=== PATIENT | female | born 1980 | race Two or more races ===

== ENCOUNTER 2025-02-01 08:20 | Day surgery (SDC) | payer BC, SELFPAY ==
--- NOTE | 2025-01-29 12:58 | ESHP_ITS ---
RE: ISIDRO CARVAJAL : 1980 DATE OF ADMISSION: 02/01/2025 HISTORY OF PRESENT ILLNESS: This is a 44-year-old 1, para 1 with IUD that could not be removed in the office due to non-visualization of the IUD string, although an ultrasound confirms that the IUD is in the uterine cavity and in the fundal position. Gentle probing of the endocervical canal has failed to allow the IUD to be removed. She is presenting for hysteroscopy with IUD removal. ALLERGIES: NO KNOWN DRUG ALLERGIES. MEDICATIONS: None. PAST MEDICAL HISTORY: Leiomyomatous uterus and severe pelvic adhesions. SOCIAL HISTORY: She denies any alcohol, drug use, or smoking. OBSTETRIC HISTORY: In 2004, normal vaginal delivery. No complications. PAST SURGICAL HISTORY: Diagnostic laparoscopy, severe pelvic adhesions. REVIEW OF SYSTEMS: She denies any chest pain, palpitations, cough, fever, or shortness of breath or lower extremity pain. PHYSICAL EXAMINATION: VITAL SIGNS: Blood pressure 133/80, heart rate 70, respirations 18, temperature 98.2, weight 157 pounds. HEENT: Oropharynx and sclerae are clear. LUNGS: Clear to auscultation bilaterally. HEART: Regular rate and rhythm. ABDOMEN: Nontender. PELVIC: Deferred. EXTREMITIES: Nontender. SKIN: No gross rashes or lesions. NEUROLOGIC: No focal deficits. ASSESSMENT: IUD with missing strings. PLAN: Hysteroscopy, IUD removal. Informed consent was obtained. The patient was made aware of the risks, complications, alternatives, and benefits of the proposed procedure and she agrees. She is aware of the risk of injury to bowel or bladder, uterus, adjacent organs, pulmonary embolism, deep vein thrombosis, pelvic infection, reoperation, repair injury to internal organs, anesthesia complications, the possibility that a laparotomy needs to be performed to repair organs or complete the procedure or control bleeding and the possibility that the procedure is not able to be completed due to severe adhesions or technical difficulties. DT: 09:55:11 TT: 12:20:00 Ref: [id number] - TID: [id number] [email or web address]
[2025-01-31 10:32] VITALS: BMI 28.3
[2025-01-31 11:24] LABS: Basophils % (Auto) 0 % (0-2.5); Eosinophils # (Auto) 0.4 Thou/mm3 (0.0-0.5); Eosinophils % (Auto) 7 % (0-10); Hematocrit 42.4 % (36.0-46.0); Hemoglobin 14.6 g/dL (12.0-16.0); Immature Granulocytes % (Auto) 0 % (0-0); Immature Granulocytes Auto 0.01 Thou/mm3 (0.00-0.00); Lymphocytes # (Auto) 1.4 Thou/mm3 (1.0-4.8); Lymphocytes % (Auto) 25 % (10-50); Mean Corpuscular HGB Conc 34.4 g/dl (31.0-37.0); Mean Corpuscular Hemoglobin 31.2 pg (25.0-35.0); Mean Corpuscular Volume 91 fL (80-100); Monocytes # (Auto) 0.5 Thou/mm3 (0.0-0.8); Monocytes % (Auto) 9 % (0-12); Neutrophils # (Auto) 3.2 Thou/mm3 (1.8-7.7); Neutrophils % (Auto) 58 % (37-80); Nucleated Red Blood Cell % 0 /100 WBC (0); Platelet Count 260 Thou/mm3 (140-440); RDW Standard Deviation 46.4 fL (36.4-46.3); Red Blood Count 4.68 Miln/mm3 (4.00-5.20); White Blood Count 5.4 Thou/mm3 (3.6-11.0)
[2025-01-31 11:54] LABS: Partial Thromboplastin Time 27.4 Seconds (22.0-36.0); Prothrombin Time 10.9 Seconds (9.0-12.2)
[2025-01-31 11:58] LABS: Alanine Aminotransferase 17 U/L (10-49); Albumin, Serum 4.4 gm/dL (3.5-5.0); Albumin/Globulin Ratio 1.7 (1.2-2.2); Alkaline Phosphatase 34 U/L (46-116); Anion Gap 8 (7-16); Aspartate Amino Transferase 27 U/L (0-34); BUN/Creatinine Ratio 10 Ratio (12-20); Beta HCG,Quantitative < 1 mIU/mL (<5.0); Bilirubin,Total 0.6 mg/dL (0.3-1.2); Blood Urea Nitrogen 8 mg/dL (9-23); Calcium 10.2 mg/dL (8.3-10.6); Calcium (Corrected) 10.2 mg/dL (8.5-10.1); Carbon Dioxide 29.3 mMol/L (20.0-31.0); Chloride 104 mMol/L (98-107); Creatinine (Component) 0.8 mg/dL (0.6-1.3); Estimated Creatinine Clearance 84.7 mL/min (>60); Globulin 2.6 gm/dL (2.3-3.5); Glucose 96 mg/dL (74-106); Osmolality,Calculated 279 (275-295); Potassium 4.3 mMol/L (3.4-5.1); Sodium 141 mMol/L (136-145); eGFR > 60 See Note
[2025-02-01 08:53] VITALS: BP 124/87; PULSE 68; RESP 12; TEMP 36.1; O2SAT 98; BMI 28.9
[2025-02-01] MEDS: RINGERS LACTATED 1000 ML 1,000 ML 30 ML IV (08:59)
[2025-02-01 11:24] VITALS: BP 103/66; PULSE 58; PULSE 59; RESP 12; TEMP 36.3; O2SAT 96
[2025-02-01 11:30] VITALS: BP 114/75; PULSE 58; RESP 12; TEMP 36.2; O2SAT 96
[2025-02-01 11:35] VITALS: BP 121/76; PULSE 55; RESP 14; TEMP 36.2; O2SAT 100
[2025-02-01 11:40] VITALS: BP 115/77; PULSE 66; RESP 14; TEMP 36.2; O2SAT 100
[2025-02-01 11:55] VITALS: BP 128/81; PULSE 69; RESP 14; TEMP 36.2; O2SAT 98
--- NOTE | 2025-02-01 11:56 | SUR.PHASEII ---
pt able to tolerate oral fluids without difficulty swallowing or nausea/vomiting.
--- NOTE | 2025-02-01 12:04 | ESOP_ITS ---
RE: ISIDRO CARVAJAL : 1980 DATE OF OPERATION: 02/01/2025 PREOPERATIVE DIAGNOSIS: Intrauterine device with missing strings. POSTOPERATIVE DIAGNOSIS: Intrauterine device with missing strings. PROCEDURE PERFORMED: Hysteroscopy with intrauterine device removal. SURGEON: Ronan Rivers DO GEAR ROOM KEEPER: None. ANESTHESIA: General. ANESTHESIOLOGIST: Dr. Cardoza. ESTIMATED BLOOD LOSS: 1 mL. COMPLICATIONS: None. COUNTS: Correct. PATHOLOGY: Paragard intrauterine device without string. FINDINGS: A Paragard intrauterine device in the fundal uterine cavity without intrauterine device string. DESCRIPTION OF PROCEDURE: After proper informed consent was obtained and the patient was made aware of the risks, complications, alternatives, and benefits of the proposed procedure, she was taken to the operating room where she underwent induction of general anesthesia. She was placed in the dorsal lithotomy position. She was prepped and draped in a sterile fashion. A time-out was performed. A speculum was placed in the vagina and tenaculum was used to grasp the anterior lip of the cervix. The cervix was dilated to accommodate the 5.5 mm Omni hysteroscope. The uterus was anteverted. The hysteroscope was then utilized to visualize the endocervix. There was no string noted. The intrauterine device was in the fundal aspect of the uterus. It was grasped with the hysteroscopic grasper and removed from the uterine cavity complete and intact and submitted to pathology. There was no string attached to the Paragard intrauterine device, but the intrauterine device was intact. The uterine cavity was visualized with the hysteroscope and there were no remaining fragments of the intrauterine device remaining nor was there any submucous myomas or polyps or irregularities or distortions of the uterine cavity. All instruments were removed from the vagina. There was no bleeding at the end of the procedure. She was reversed from general anesthesia in the supine position and transferred to the recovery room in stable condition. She tolerated the procedure well. Counts were correct. I discussed with the patient's family, the nature of her condition, intraoperative findings, expectation for recovery. All questions were answered. DT: 11:31:41 TT: 12:01:00 Ref: [id number] - TID: [id number]
--- NOTE | 2025-02-01 12:20 | SUR.PHASEII ---
pt awake and alert, breathing unlabored on room air. v/s stable. pt dressing peripad cdi. pt able to ambulate to wheelchair with steady gait. d/c instructions given with Mika in room, all questions answered. pt d/c via wheelchair with all belongings.
== END 2025-02-01 12:20 | disposition home or self-care (01) ==
PROVIDERS: Absent Provider Specialist; PCP Internal Medicine; Referring Provider Specialist; Visit Provider Specialist
PROC: 0UJD8ZZ Inspection of Uterus and Cervix, Via Natural or Artificial Opening Endoscopic (ICD-10-PCS; CPT 58555; principal; 2025-02-01 10:30)
DX: T83.32XA Displacement of intrauterine contraceptive device, initial encounter (principal)
CPT/HCPCS: 58301; 36415; 80053; 84702; 85025; 85610; 85730; 86850; 86900; 86901; A4217; A4649; J0690; J1100; J1885; J2250; J2405; J2704; J3010; J7120